=== PATIENT | male | born 1965 | race Caucasian/White ===

== ENCOUNTER → 2017-12-18 | Outpatient (CLI) | payer MEDICAID, OTHER | LOC: WOUNDCARE 13:01 | PROVIDERS: ATTEND Surgery | DX: L89.620 Pressure ulcer of left heel, unstageable (principal); E11.621 Type 2 diabetes mellitus with foot ulcer; E11.42 Type 2 diabetes mellitus with diabetic polyneuropathy; L97.514 Non-pressure chronic ulcer of other part of right foot with necrosis of bone; M86.471 Chronic osteomyelitis with draining sinus, right ankle and foot; N18.6 End stage renal disease; I69.351 Hemiplegia and hemiparesis following cerebral infarction affecting right dominant side; R54 Age-related physical debility | CPT/HCPCS: 11044; 87070; 87075; 87186; 87205; 97597 ==

== ENCOUNTER → 2017-12-23 | Outpatient (CLI) | payer MEDICAID | LOC: WOUNDCARE 14:31 | PROVIDERS: ATTEND Surgery | DX: E11.621 Type 2 diabetes mellitus with foot ulcer (principal); L97.514 Non-pressure chronic ulcer of other part of right foot with necrosis of bone; L89.620 Pressure ulcer of left heel, unstageable; I70.235 Atherosclerosis of native arteries of right leg with ulceration of other part of foot; M86.471 Chronic osteomyelitis with draining sinus, right ankle and foot; E11.42 Type 2 diabetes mellitus with diabetic polyneuropathy; N18.6 End stage renal disease; I69.351 Hemiplegia and hemiparesis following cerebral infarction affecting right dominant side; R54 Age-related physical debility | CPT/HCPCS: 99213 ==

== ENCOUNTER → 2017-12-23 | Outpatient (CLI) | payer MEDICAID | LOC: RAD 14:27 | PROVIDERS: ATTEND Surgery | DX: Z53.8 Procedure and treatment not carried out for other reasons (principal); L89.620 Pressure ulcer of left heel, unstageable; E11.621 Type 2 diabetes mellitus with foot ulcer; E11.42 Type 2 diabetes mellitus with diabetic polyneuropathy; L97.514 Non-pressure chronic ulcer of other part of right foot with necrosis of bone; M86.471 Chronic osteomyelitis with draining sinus, right ankle and foot; N18.6 End stage renal disease; I69.351 Hemiplegia and hemiparesis following cerebral infarction affecting right dominant side; R54 Age-related physical debility; I70.235 Atherosclerosis of native arteries of right leg with ulceration of other part of foot ==

== ENCOUNTER 2018-01-07 16:49 | Emergency (ER) | payer MEDICARE, MEDICAID ==
[~2018-01-07] VITALS: Ht 165.1 cm; Wt 71.8 kg
[2018-01-07 17:27] LABS: BASOPHILS % (AUTO) 0 % (0-10); EOSINOPHILS # (AUTO) 0.2 10^3/uL (0.0-0.3); EOSINOPHILS % (AUTO) 3 % (0-10); HEMATOCRIT 29 % (40-54); HEMOGLOBIN 9.7 G/DL (13.3-17.7); LYMPHOCYTES # (AUTO) 2.5 X 10^3 (1.0-4.0); LYMPHOCYTES % (AUTO) 30 % (12-44); MEAN CORPUSCULAR HEMOGLOBIN 30 PG (25-34); MEAN CORPUSCULAR HGB CONC 33 G/DL (32-36); MEAN CORPUSCULAR VOLUME 92 FL (80-99); MEAN PLATELET VOLUME 10.2 FL (7.4-10.4); MONOCYTES # (AUTO) 0.7 X 10^3 (0.0-1.0); MONOCYTES % (AUTO) 8 % (0-12); NEUTROPHILS # (AUTO) 4.9 X 10^3 (1.8-7.8); NEUTROPHILS % (AUTO) 59 % (42-75); PLATELET COUNT 300 10^3/uL (130-400); WHITE BLOOD COUNT 8.2 10^3/uL (4.3-11.0)
--- NOTE | 2018-01-07 17:42 | ED General ---
General Chief Complaint: General Problems/Pain Stated Complaint: LOW BP Source of Information: Patient Exam Limitations: No Limitations History of Present Illness Date Seen by Provider: Jan 07, 2018 Time Seen by Provider: 17:39 Initial Comments To ER from [facility] with reports of low blood pressure. He is an end-stage renal failure patient, does still produce urine. His last hemodialysis was on 12/26/17. He has not been going because he "doesn't feel like it". Staff has not noticed any fevers. He is generally weak. Timing/Duration: 1-2 Days Severity: Moderate Allergies and Home Medications Allergies Coded Allergies: No Known Drug Allergies (Unverified , 01/07/18) Patient Home Medication List Home Medication List Reviewed: Yes Review of Systems Constitutional: see HPI EENTM: see HPI Respiratory: no symptoms reported Cardiovascular: no symptoms reported Genitourinary: no symptoms reported Musculoskeletal: no symptoms reported Skin: no symptoms reported Psychiatric/Neurological: No Symptoms Reported Hematologic/Lymphatic: No Symptoms Reported Immunological/Allergic: no symptoms reported Past Icrutor-Hsricj-Spiuue Hx Patient Social History Recent Foreign Travel: No Contact w/Someone Who Travel: No Physical Exam Vital Signs Vital Signs - First Documented 01/07/18 17:00 Temp 97.4 Pulse 76 Resp 29 B/P (MAP) 87/54 (65) Pulse Ox 100 O2 Delivery Room Air Capillary Refill : General Appearance: No Apparent Distress, WD/WN, Chronically ill Eyes: Bilateral Eye Normal Inspection, Bilateral Eye PERRL, Bilateral Eye EOMI HEENT: PERRL/EOMI, TMs Normal Respiratory: No Accessory Muscle Use, No Respiratory Distress, Decreased Breath Sounds Cardiovascular: Regular Rate, Rhythm, Normal Peripheral Pulses Gastrointestinal: Normal Bowel Sounds, Non Tender, Soft Extremity: No Calf Tenderness, Other (delayed capillary refill of both lower extremities. 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 The distal aspect of the right second toe is now necrotic. He has a wound over the medial aspect of the right midfoot at the incision site from prior first toe amputation. On the left foot he has a decubitus ulcer left heel.) Neurologic/Psychiatric: Oriented x3, Other Skin: Normal Color, Warm/Dry, Other (has some erythema over the sacrum suggesting stage I or 2 decubitus ulcer. Wheelchair bound.) Comments 1807-he gets dialysis on Saturday. He skipped today so he could get it on . His labs surprisingly do not look as bad as I expected. I did discuss with him that if he skips anymore dialysis sessions he is signing his own certificate, he would be beyond the point of repair and would need to go on hospice. I then discussed with him that hospice is focused on keeping people comfortable as they are dying. He understands that he cannot miss anymore dialysis treatments, he does not want to consider hospice at this time. He understands the importance of dialysis and what will happen if he skips dialysis Focused Exam Lactate Level 01/07/18 17:09: Lactic Acid Level 2.03*H Lactic Acid Level Laboratory Tests Test 01/07/18 17:09 Lactic Acid Level 2.03 MMOL/L (0.50-2.00) *H Progress/Results/Core Measures Suspected Sepsis SIRS Temperature: Pulse: Respiratory Rate: Laboratory Tests 01/07/18 17:09: White Blood Count 8.2 Blood Pressure / Mean: 01/07/18 17:09: Lactic Acid Level 2.03*H Laboratory Tests 01/07/18 17:09: Creatinine 4.90H, Platelet Count 300, Total Bilirubin 0.6 Results/Orders Lab Results Laboratory Tests Test 01/07/18 17:04 01/07/18 17:09 01/07/18 17:15 Range/Units Urine Color YELLOW Urine Clarity CLEAR Urine pH 5 5-9 Urine Specific [place] 1.015 L 1.016-1.022 Urine Protein NEGATIVE NEGATIVE Urine Glucose (UA) NEGATIVE NEGATIVE Urine Ketones NEGATIVE NEGATIVE Urine Nitrite NEGATIVE NEGATIVE Urine Bilirubin NEGATIVE NEGATIVE Urine Urobilinogen NORMAL NORMAL MG/DL Urine Leukocyte Esterase NEGATIVE NEGATIVE Urine RBC (Auto) NEGATIVE NEGATIVE Urine RBC 0-2 /HPF Urine WBC NONE /HPF Urine Crystals NONE /LPF Urine Bacteria NEGATIVE /HPF Urine Casts NONE /LPF Urine Mucus NEGATIVE /LPF Urine Culture Indicated NO White Blood Count 8.2 4.3-11.0 10^3/uL Red Blood Count 3.20 L 4.35-5.85 10^6/uL Hemoglobin 9.7 L 13.3-17.7 G/DL Hematocrit 29 L 40-54 % Mean Corpuscular Volume 92 80-99 FL Mean Corpuscular Hemoglobin 30 25-34 PG Mean Corpuscular Hemoglobin Concent 33 32-36 G/DL Red Cell Distribution Width 18.0 H 10.0-14.5 % Platelet Count 300 130-400 10^3/uL Mean Platelet Volume 10.2 7.4-10.4 FL Neutrophils (%) (Auto) 59 42-75 % Lymphocytes (%) (Auto) 30 12-44 % Monocytes (%) (Auto) 8 0-12 % Eosinophils (%) (Auto) 3 0-10 % Basophils (%) (Auto) 0 0-10 % Neutrophils # (Auto) 4.9 1.8-7.8 X 10^3 Lymphocytes # (Auto) 2.5 1.0-4.0 X 10^3 Monocytes # (Auto) 0.7 0.0-1.0 X 10^3 Eosinophils # (Auto) 0.2 0.0-0.3 10^3/uL Basophils # (Auto) 0.0 0.0-0.1 10^3/uL Sodium Level 135 135-145 MMOL/L Potassium Level 4.2 3.6-5.0 MMOL/L Chloride Level 102 98-107 MMOL/L Carbon Dioxide Level 16 L 21-32 MMOL/L Anion Gap 17 H 5-14 MMOL/L Blood Urea Nitrogen 92 H 7-18 MG/DL Creatinine 4.90 H 0.60-1.30 MG/DL Estimat Glomerular Filtration Rate 12 BUN/Creatinine Ratio 19 Glucose Level 121 H 70-105 MG/DL Lactic Acid Level 2.03 *H 0.50-2.00 MMOL/L Calcium Level 8.4 L 8.5-10.1 MG/DL Total Bilirubin 0.6 0.1-1.0 MG/DL Aspartate Amino Transf (AST/SGOT) 392 H 5-34 U/L Alanine Aminotransferase (ALT/SGPT) 141 H 0-55 U/L Alkaline Phosphatase 417 H 40-136 U/L Total Protein 5.7 L 6.4-8.2 GM/DL Albumin 2.6 L 3.2-4.5 GM/DL B-Type Natriuretic Peptide 61.2 <100.0 PG/ML My Orders Orders - STERLING PHIPPS APRN Blood Culture (01/07/18 17:15) Lactic Acid Analyzer (01/07/18 17:15) Cbc With Automated Diff (01/07/18 17:15) Comprehensive Metabolic Panel (01/07/18 17:15) Ua Culture If Indicated (01/07/18 17:15) Iv Heplock-Insert (Order) (01/07/18 17:15) Chest 1 View, Ap/Pa Only (01/07/18 17:15) BNP (01/07/18 17:15) Ekg Tracing (01/07/18 17:15) Continuous Ekg Monitoring (01/07/18 17:15) Ns Iv 1000 Ml (Sodium Chloride 0.9%) (01/07/18 17:45) Ns Iv 1000 Ml (Sodium Chloride 0.9%) (01/07/18 20:15) Vital Signs/I&O 01/07/18 01/07/18 17:00 19:30 Temp 97.4 97.4 Pulse 76 79 Resp 29 14 B/P (MAP) 87/54 (65) 108/56 Pulse Ox 100 94 O2 Delivery Room Air Room Air Capillary Refill : Diagnostic Imaging Diagonstic Imaging: Xray Plain Films/CT/US/NM/MRI: chest Comments NAME: EVERTON MCGRAW [facility] REC#: [id number] PT STATUS: REG ER : 1965 PHYSICIAN: STERLING PHIPPS NARROW GAUGE OPERATOR ADMIT DATE: 01/07/18/ER Draft Date of Exam:01/07/18 CHEST 1 VIEW, AP/PA ONLY Portable erect AP chest at 5:45 p.m. INDICATION: Hypotension. There are no prior studies available for comparison. FINDINGS: This exam is less than optimal as the patient is rotated and the exam is taken in shallow inspiration. Allowing for these technical factors, the heart size is within normal limits. The lungs, where visualized, are clear. The mediastinum is not widened. The osseous structures are intact. There is a dialysis catheter in place on the right with the tip of the catheter overlying the distal superior vena cava. IMPRESSION: 1. There is no evidence for an acute cardiopulmonary abnormality on this suboptimal exam. 2. If clinical concern regarding an underlying abnormality persists, then a followup PA and lateral chest would be recommended for further study. Dictated on workstation # [id number] Dict: 01/07/18 1749 Trans: 01/07/18 1753 [facility] [id number] Interpreted by: ZAHEER ARAMBULA MD Electronically signed by: Departure Communication (Admissions) I have made arrangements for gravadrien on hosp[facility] to educate him about hosp[facility] so that he can proceed with hospice arrangements should he ever want to. 1921-his blood pressure after 1 L of fluids has been consistently over 105 systolic. We will [facility] 2035- at the time of discharge she has blood pressure was down to 77/56. An IV was restarted, he was given a second bag of IV fluids. After having had only about 100-200 cc of fluids from the second liter his blood pressure was back up to 120/64 and 117/86 on 2 readings 15 minutes apart. We'll [facility] with diagnosis of labile blood pressure Impression Primary Impression: ESRD (end stage renal disease) on dialysis Additional Impressions: Noncompliance Labile blood pressure Disposition: SNF Condition: Stable Departure-Patient Inst. Decision time for Depature: 20:37 Referrals: MARIA ELENA SOOD DO (PCP) Primary Care Physician Patient Instructions: NO INSTRUCTIONS GIVEN Add. Discharge Instructions: 1. He must not miss any more dialysis treatments and I have discussed this with him. He should be absolutely certain that he attends his next dialysis treatment on . Hospice will also come [facility] for a consult to see if this is something he would like to pursue. All discharge instructions reviewed with patient and/or family. Voiced understanding. Copy Copies To 1: MARIA ELENA SOOD PETER J APRN Jan 07, 2018 17:42
[2018-01-07] MEDS ORDERED: NS IV 1000 ML 1,000 ML IV SCH ×2 (17:45→20:15)
[2018-01-07 17:48] LABS: ALBUMIN 2.6 GM/DL (3.2-4.5); BILIRUBIN,TOTAL 0.6 MG/DL (0.1-1.0); CALCIUM 8.4 MG/DL (8.5-10.1); CREATININE SERUM 4.9 MG/DL (0.60-1.30); POTASSIUM 4.2 MMOL/L (3.6-5.0); TOTAL PROTEIN 5.7 GM/DL (6.4-8.2)
--- NOTE | 2018-01-07 17:54 | Diagnostic Imaging Report ---
Portable erect AP chest at 5:45 p.m. INDICATION: Hypotension. There are no prior studies available for comparison. FINDINGS: This exam is less than optimal as the patient is rotated and the exam is taken in shallow inspiration. Allowing for these technical factors, the heart size is within normal limits. The lungs, where visualized, are clear. The mediastinum is not widened. The osseous structures are intact. There is a dialysis catheter in place on the right with the tip of the catheter overlying the distal superior vena cava. IMPRESSION: 1. There is no evidence for an acute cardiopulmonary abnormality on this suboptimal exam. 2. If clinical concern regarding an underlying abnormality persists, then a followup PA and lateral chest would be recommended for further study. Dictated by: Dictated on workstation # [id number]
[2018-01-07 19:12] LABS: BILIRUBIN,URINE NEGATIVE (NEGATIVE); CLARITY,URINE CLEAR; COLOR,URINE YELLOW; GLUCOSE, URINE (UA) NEGATIVE (NEGATIVE); KETONES,URINE NEGATIVE (NEGATIVE); LEUKOCYTE ESTERASE ,URINE NEGATIVE (NEGATIVE); NITRITE,URINE NEGATIVE (NEGATIVE); PH,URINE 5 (5-9); PROTEIN,URINE NEGATIVE (NEGATIVE); UROBILINOGEN,URINE NORMAL (NORMAL)
[2018-01-07 19:19] LABS: BACTERIA,URINE NEGATIVE /HPF; RBC,URINE 0-2 /HPF
[2018-01-07 19:30] VITALS: BP 108/56
== END 2018-01-07 21:20 ==
LOC: EDUNIT# 16:49 → ER 16:50
DX: N18.6 End stage renal disease (principal); R03.1 Nonspecific low blood-pressure reading; Z99.2 Dependence on renal dialysis; Z91.19 Patient's noncompliance with other medical treatment and regimen
CPT/HCPCS: 36415; 71045; 80053; 81000; 83605; 83880; 85025; 87040; 93005; 96360; 96361

== ENCOUNTER 2018-01-25 07:52 | Emergency (ER) | payer MEDICARE, MEDICAID ==
[~2018-01-25] VITALS: Ht 165.1 cm; Wt 71.8 kg
[2018-01-25 08:11] LABS: BASOPHILS % (AUTO) 0 % (0-10); EOSINOPHILS # (AUTO) 0.1 10^3/uL (0.0-0.3); EOSINOPHILS % (AUTO) 1 % (0-10); HEMATOCRIT 22 % (40-54); HEMOGLOBIN 7.2 G/DL (13.3-17.7); LYMPHOCYTES # (AUTO) 2.9 X 10^3 (1.0-4.0); LYMPHOCYTES % (AUTO) 31 % (12-44); MEAN CORPUSCULAR HEMOGLOBIN 31 PG (25-34); MEAN CORPUSCULAR HGB CONC 32 G/DL (32-36); MEAN CORPUSCULAR VOLUME 96 FL (80-99); MEAN PLATELET VOLUME 8.6 FL (7.4-10.4); MONOCYTES # (AUTO) 1.1 X 10^3 (0.0-1.0); MONOCYTES % (AUTO) 11 % (0-12); NEUTROPHILS # (AUTO) 5.2 X 10^3 (1.8-7.8); NEUTROPHILS % (AUTO) 56 % (42-75); PLATELET COUNT 290 10^3/uL (130-400); RED BLOOD COUNT 2.31 10^6/uL (4.35-5.85); RED CELL DISTRIBUTION WIDTH 19.7 % (10.0-14.5); WHITE BLOOD COUNT 9.2 10^3/uL (4.3-11.0)
[2018-01-25] MEDS ORDERED: NS IV 1000 ML 1,000 ML IV SCH ×2 (08:15→09:00)
--- NOTE | 2018-01-25 08:19 | ED General ---
General Stated Complaint: LETHARGIC Source of Information: Patient Exam Limitations: No Limitations History of Present Illness Date Seen by Provider: Jan 25, 2018 Time Seen by Provider: 08:15 Initial Comments The patient is a 52-year-old white male who was brought by EMS from a local dialysis center. He resides in a local [facility]dc and receives hemodialysis. He was here in December with similar complaints 2 today. At that time he had skipped his dialysis for nearly 2 weeks as he just did not feel like it. This morning he was sent to dialysis. After he arrived it was felt he was to lethargic to have dialysis and he was sent here. On arrival he is arousable. He is poorly able to answer questioning before lapsing back into a sleeplike state. During his 01/07 visits he was consistently hypotensive here as well with blood pressures recorded as low as 77/56 Nurse Jyothi spoke to the patient's mother who is his DPO A. She states that given his multiple ailments and his significant lack of improvement post intervention the patient is a DO NOT RESUSCITATE. Timing/Duration: 1-3 Hours Allergies and Home Medications Allergies Coded Allergies: No Known Drug Allergies (Unverified , 01/07/18) Patient Home Medication List Home Medication List Reviewed: Yes Review of Systems Constitutional: see HPI Past Tkipkkc-Mlvvvn-Clbvws Hx Patient Social History Type Used: Cigarettes 2nd Hand Smoke Exposure: No Recent Foreign Travel: No Contact w/Someone Who Travel: No Physical Exam Vital Signs Vital Signs - First Documented 01/25/18 01/25/18 07:52 10:45 Temp 97.7 Pulse 63 Resp 16 B/P (MAP) 76/54 (61) Pulse Ox 100 O2 Delivery Non Rebreather O2 Flow Rate 2.00 Capillary Refill : Height, Weight, BMI Height: 5'5.00" Weight: 158lbs. 4.0oz. [id number]; BMI Method:Actual General Appearance: Other Eyes: Bilateral Eye Normal Inspection HEENT: Normal ENT Inspection Neck: Normal Inspection Respiratory: Chest Non Tender, Lungs Clear, Normal Breath Sounds, No Accessory Muscle Use, No Respiratory Distress Cardiovascular: Regular Rate, Rhythm, No Edema, No Gallop, No JVD, No Murmur, Normal Peripheral Pulses Gastrointestinal: Non Tender, Abnormal Bowel Sounds Comments Bilateral wound care boots Focused Exam Lactate Level 01/25/18 08:31: Lactic Acid Level 2.18*H 01/25/18 10:33: Lactic Acid Level 1.84 Lactic Acid Level Laboratory Tests Test 01/25/18 10:33 Lactic Acid Level 1.84 MMOL/L (0.50-2.00) Progress/Results/Core Measures Suspected Sepsis SIRS Temperature: Pulse: Respiratory Rate: Laboratory Tests 01/25/18 07:55: White Blood Count 9.2 Blood Pressure / Mean: 01/25/18 08:31: Lactic Acid Level 2.18*H 01/25/18 10:33: Lactic Acid Level 1.84 Laboratory Tests 01/25/18 07:55: Creatinine 3.49H, Platelet Count 290, Total Bilirubin 0.4 Results/Orders Lab Results Laboratory Tests Test 01/25/18 07:55 01/25/18 08:31 01/25/18 10:33 Range/Units White Blood Count 9.2 4.3-11.0 10^3/uL Red Blood Count 2.31 L 4.35-5.85 10^6/uL Hemoglobin 7.2 L 13.3-17.7 G/DL Hematocrit 22 L 40-54 % Mean Corpuscular Volume 96 80-99 FL Mean Corpuscular Hemoglobin 31 25-34 PG Mean Corpuscular Hemoglobin Concent 32 32-36 G/DL Red Cell Distribution Width 19.7 H 10.0-14.5 % Platelet Count 290 130-400 10^3/uL Mean Platelet Volume 8.6 7.4-10.4 FL Neutrophils (%) (Auto) 56 42-75 % Lymphocytes (%) (Auto) 31 12-44 % Monocytes (%) (Auto) 11 0-12 % Eosinophils (%) (Auto) 1 0-10 % Basophils (%) (Auto) 0 0-10 % Neutrophils # (Auto) 5.2 1.8-7.8 X 10^3 Lymphocytes # (Auto) 2.9 1.0-4.0 X 10^3 Monocytes # (Auto) 1.1 H 0.0-1.0 X 10^3 Eosinophils # (Auto) 0.1 0.0-0.3 10^3/uL Basophils # (Auto) 0.0 0.0-0.1 10^3/uL Sodium Level 133 L 135-145 MMOL/L Potassium Level 3.3 L 3.6-5.0 MMOL/L Chloride Level 101 98-107 MMOL/L Carbon Dioxide Level 22 21-32 MMOL/L Anion Gap 10 5-14 MMOL/L Blood Urea Nitrogen 25 H 7-18 MG/DL Creatinine 3.49 H 0.60-1.30 MG/DL Estimat Glomerular Filtration Rate 18 BUN/Creatinine Ratio 7 Glucose Level 320 H 70-105 MG/DL Calcium Level 7.7 L 8.5-10.1 MG/DL Total Bilirubin 0.4 0.1-1.0 MG/DL Aspartate Amino Transf (AST/SGOT) 18 5-34 U/L Alanine Aminotransferase (ALT/SGPT) < 6 0-55 U/L Alkaline Phosphatase 165 H 40-136 U/L Total Protein 4.5 L 6.4-8.2 GM/DL Albumin 2.0 L 3.2-4.5 GM/DL Lactic Acid Level 2.18 *H 1.84 0.50-2.00 MMOL/L My Orders Orders - ALBERTO STANFORD MD Cbc With Automated Diff (01/25/18 07:58) Comprehensive Metabolic Panel (01/25/18 07:58) Lactic Acid Analyzer (01/25/18 07:58) Blood Culture (01/25/18 07:58) Ns Iv 1000 Ml (Sodium Chloride 0.9%) (01/25/18 08:15) Ns Iv 1000 Ml (Sodium Chloride 0.9%) (01/25/18 09:00) Red Cells Leukocytes Reduced (01/25/18 08:49) Type And Screen (01/25/18 08:49) Vital Signs/I&O 01/25/18 01/25/18 01/25/18 01/25/18 07:52 10:45 10:59 11:00 Temp 97.7 Pulse 63 58 56 56 Resp 16 18 18 18 B/P (MAP) 76/54 (61) 77/55 91/55 (67) 86/55 Pulse Ox 100 98 98 98 O2 Delivery Non Rebreather Nasal Cannula Nasal Cannula Nasal Cannula O2 Flow Rate 2.00 01/25/18 11:55 Pulse 55 Resp 18 B/P (MAP) 88/44 (59) Pulse Ox 100 O2 Delivery Nasal Cannula Capillary Refill : Departure Communication (Admissions) 1129. The patient is receiving 1 unit of packed red blood cells at this time. His blood pressures is now 90/60 and he is alert and conversant. When he was asked whether he would wish to go on to [place] today versus back to the [facility] with Dialysis on Saturday he voiced his wishes to return to the fdc. 1248 the patient has completed his transfusion. He was asked again what it was still his wish to return to the fdc and he stated yes. Impression Primary Impression: renal failure Additional Impression: anemia/hypotension Disposition: 01 HOME, SELF-CARE Condition: Improved Transfer Method of Transfer: [facility]dc van Departure-Patient Inst. Decision time for Depature: 12:46 Referrals: MARIA ELENA SOOD DO (PCP) Primary Care Physician Add. Discharge Instructions: Resume usual activities. Return to dialysis the first of the week. ALBERTO STANFORD MD Jan 25, 2018 08:19
[2018-01-25 08:28] LABS: ALANINE AMINOTRANSFERASE < 6 U/L (0-55); ALKALINE PHOSPHATASE 165 U/L (40-136); BILIRUBIN,TOTAL 0.4 MG/DL (0.1-1.0); BUN/CREATININE RATIO 7; CALCIUM 7.7 MG/DL (8.5-10.1); CARBON DIOXIDE 22 MMOL/L (21-32); CHLORIDE 101 MMOL/L (98-107); CREATININE SERUM 3.49 MG/DL (0.60-1.30); GFR ESTIMATED 18; GLUCOSE 320 MG/DL (70-105); POTASSIUM 3.3 MMOL/L (3.6-5.0); SODIUM 133 MMOL/L (135-145); TOTAL PROTEIN 4.5 GM/DL (6.4-8.2)
[2018-01-25 10:45] VITALS: BP 77/55
[2018-01-25 10:59] VITALS: BP 91/55
[2018-01-25 11:00] VITALS: BP 86/55
[2018-01-25 11:55] VITALS: BP 88/44
[2018-01-25 12:44] VITALS: BP 81/54
[2018-01-25 13:00] VITALS: BP 96/74
== END 2018-01-25 13:00 | disposition home or self-care (01) ==
LOC: EDUNIT# 07:52 → ER 07:56
DX: N19 Unspecified kidney failure (principal); D64.9 Anemia, unspecified; I95.9 Hypotension, unspecified; Z99.2 Dependence on renal dialysis
CPT/HCPCS: 36415; 80053; 83605; 85025; 86850; 86900; 86901; 86920; 87040; 96360; 96361; 99284

== ENCOUNTER → 2018-02-04 | Outpatient (CLI) | payer MEDICARE, MEDICAID ==
--- NOTE | 2018-02-04 16:03 | Diagnostic Imaging Report ---
INDICATION: INDICATION: Right arm swelling. PROCEDURE: US UE venous duplex right. TECHNIQUE: Multiple Real-time grayscale images were obtained over the right upper extremity in various projections. Additional duplex Doppler and color Doppler images were also obtained. FINDINGS: The right jugular vein is thrombosed. The subclavian, axillary, and brachial veins are patent. The basilic, radial, and ulnar veins are patent. There is a cystic mass in the region of the lower bicep measuring 4.1 x 2.3 x 4.2 cm. This is near the patient's incision where reportedly a fistula was placed. No blood flow within the cystic mass is seen. This may represent a seroma or resolving hematoma. IMPRESSION: 1. Right jugular vein thrombosis. 2. Cystic mass in the region of the right bicep without internal blood flow. This is most consistent with a resolving hematoma/seroma. Dictated by: Dictated on workstation # [id number]
== END ==
LOC: RAD 14:06
PROVIDERS: ATTEND Family Medicine
DX: I82.C11 Acute embolism and thrombosis of right internal jugular vein (principal)

== ENCOUNTER → 2018-02-24 | Outpatient (CLI) | payer MEDICARE, MEDICAID ==
--- NOTE | 2018-02-24 17:05 | Diagnostic Imaging Report ---
INDICATION: Right upper extremity edema. TECHNIQUE: Multiple real-time grayscale images were obtained of the right upper extremity in various projections. Duplex Doppler and color Doppler images were also obtained. FINDINGS: The examination was technically limited. There is a large hematoma in the right upper arm measuring 9 x 4.9 x 3.5 cm. This obscures the proximal and mid brachial and basilic veins. Additionally, the ulnar vein was not seen due to edema. There is no definitive evidence of deep venous thrombosis. There is a PICC line in the right upper extremity. IMPRESSION: Technically limited exam with no definitive evidence of deep venous thrombosis. There is a large hematoma in the right upper arm as described. Dictated by: Dictated on workstation # [id number]
== END ==
LOC: RAD 16:09
PROVIDERS: ATTEND Family Medicine
DX: M79.81 Nontraumatic hematoma of soft tissue (principal)

== ENCOUNTER 2018-03-12 22:08 | Emergency (ER) | payer MEDICARE, MEDICAID ==
[~2018-03-12] VITALS: Ht 175.3 cm; Wt 72.6 kg
[2018-03-12] MEDS ORDERED: LIDOCAINE UROJET 2% GEL 10 ML PKG TOP ONE (22:15)
[2018-03-12 22:32] LABS: BILIRUBIN,URINE NEGATIVE (NEGATIVE); CLARITY,URINE MUCOUS; COLOR,URINE OTHER; GLUCOSE, URINE (UA) NEGATIVE (NEGATIVE); KETONES,URINE 1+ (NEGATIVE); LEUKOCYTE ESTERASE ,URINE 3+ (NEGATIVE); NITRITE,URINE NEGATIVE (NEGATIVE); PH,URINE 6 (5-9); PROTEIN,URINE 3+ (NEGATIVE); UROBILINOGEN,URINE NORMAL (NORMAL)
[2018-03-12 22:34] LABS: BACTERIA,URINE FEW /HPF; WBC,URINE TNTC /HPF
[2018-03-12 22:58] LABS: BASOPHILS % (AUTO) 0 % (0-10); EOSINOPHILS # (AUTO) 0.4 10^3/uL (0.0-0.3); EOSINOPHILS % (AUTO) 4 % (0-10); HEMATOCRIT 33 % (40-54); HEMOGLOBIN 9.9 G/DL (13.3-17.7); LYMPHOCYTES % (AUTO) 11 % (12-44); MEAN CORPUSCULAR HEMOGLOBIN 30 PG (25-34); MEAN CORPUSCULAR HGB CONC 30 G/DL (32-36); MEAN CORPUSCULAR VOLUME 101 FL (80-99); MEAN PLATELET VOLUME 8.9 FL (7.4-10.4); MONOCYTES # (AUTO) 0.5 X 10^3 (0.0-1.0); MONOCYTES % (AUTO) 5 % (0-12); NEUTROPHILS # (AUTO) 7.3 X 10^3 (1.8-7.8); NEUTROPHILS % (AUTO) 79 % (42-75); PLATELET COUNT 219 10^3/uL (130-400); RED BLOOD COUNT 3.29 10^6/uL (4.35-5.85); RED CELL DISTRIBUTION WIDTH 18.6 % (10.0-14.5); WHITE BLOOD COUNT 9.2 10^3/uL (4.3-11.0)
[2018-03-12 23:16] LABS: ALBUMIN 2.8 GM/DL (3.2-4.5); BILIRUBIN,TOTAL 0.4 MG/DL (0.1-1.0); CALCIUM 8.7 MG/DL (8.5-10.1); CREATININE SERUM 2.97 MG/DL (0.60-1.30); POTASSIUM 4.1 MMOL/L (3.6-5.0); TOTAL PROTEIN 5.9 GM/DL (6.4-8.2)
[2018-03-12] MEDS ORDERED: cefTRIAXone FOR IV USE 1,000 MG in NS (IVPB) 50 ML IV ONE (23:45)
[2018-03-13] MEDS ORDERED: ONDANSETRON 4 MG/2 ML (SDV) Z0FRAN IVP ONE (00:15)
[2018-03-13] MEDS ORDERED: KETOROLAC 30 MG/ML VIAL IVP ONE (00:15)
--- NOTE | 2018-03-13 00:22 | ED GU-Male ---
General Chief Complaint: -Male Stated Complaint: TROUBLE URINATING Nursing Triage Note: Pt brought to ED via EMS. Pt in obvious pain stating he has been unable to urinate. EMS states NH attempted to straight cath the pt. Pt missed dialysis yesterday. Source: patient, EMS, custodial records Exam Limitations: no limitations History of Present Illness Date Seen by Provider: Mar 12, 2018 Time Seen by Provider: 22:09 Initial Comments This 52-year-old gentleman presents to the emergency room via EMS with complaints of inability to urinate. He normally is able to urinate on his own without difficulty. He has intense suprapubic pain as a result of retention. Attempts to pass a straight catheter at the custodial have failed. Patient denies prior need for catheterization. Patient has end-stage renal failure and receives dialysis. He still makes urine and generally urinates multiple times per day. It is noted that patient missed his dialysis yesterday because there was no transportation for him. Allergies and Home Medications Allergies Coded Allergies: No Known Drug Allergies (Unverified , 01/07/18) Home Medications Cephalexin 500 Mg Capsule, 500 MG PO BID Prescribed by: JACKIE ARDON on 03/13/18 0027 Tamsulosin HCl 0.4 Mg Cap, 0.4 MG PO DAILY Prescribed by: JACKIE ARDON on 03/13/18 0027 Patient Home Medication List Home Medication List Reviewed: Yes Review of Systems Review of Systems Constitutional: no symptoms reported EENTM: no symptoms reported Respiratory: no symptoms reported Cardiovascular: no symptoms reported Gastrointestinal: no symptoms reported Genitourinary: see HPI Musculoskeletal: no symptoms reported Skin: no symptoms reported Psychiatric/Neurological: See HPI (chronic lower extremity weakness) Endocrine: No Symptoms Reported Past Kpsmfzx-Jyekze-Liquqi Hx Past Med/Social Hx: Reviewed and Corrections made Patient Social History Alcohol Use: Denies Use Recreational Drug Use: No Smoking Status: Former Smoker Type Used: Cigarettes 2nd Hand Smoke Exposure: No Recent Foreign Travel: No Contact w/Someone Who Travel: No Recent Infectious Disease Expo: No Past Medical History Surgeries: Yes (L FEMORAL ABOVE THE KNEE POPLITEA BY PASS WITH GRAFT. ) Vascular Surgery Respiratory: No Cardiac: Yes Deep Vein Thrombosis Neurological: No Genitourinary: Yes Renal Failure, Dialysis Gastrointestinal: No Musculoskeletal: No Endocrine: Yes Diabetes, Non-Insulin dep HEENT: No Cancer: No Psychosocial: Yes Depression Physical Exam Vital Signs Vital Signs - First Documented 03/12/18 22:08 Temp 96.5 Pulse 115 Resp 20 B/P (MAP) 151/88 (109) Pulse Ox 96 O2 Delivery Room Air Capillary Refill : Less Than 3 Seconds Height, Weight, BMI Height: 5'9.00" Weight: 160lbs. 4.0oz. [id number]; BMI Method:Stated General Appearance: WD/WN, moderate distress HEENT: normal ENT inspection Neck: normal inspection Cardiovascular: regular rate, rhythm, no edema, no murmur Respiratory: lungs clear, normal breath sounds, no respiratory distress, no accessory muscle use Gastrointestinal: normal bowel sounds, soft, other (suprapubic tenderness with distended palpable bladder) Extremities: normal inspection Neurologic/Psychiatric: evidence specialist II-XII nml as tested, no motor/sensory deficits, alert, normal mood/affect, oriented x 3 Skin: normal color, warm/dry Focused Exam Lactate Level 03/12/18 22:45: Lactic Acid Level 1.73 Lactic Acid Level Laboratory Tests Test 03/12/18 22:45 Lactic Acid Level 1.73 MMOL/L (0.50-2.00) Progress/Results/Core Measures Suspected Sepsis Recent Fever Within 48 Hours: No Infection Criteria Present: None New/Unexplained Altered Menta: No Sepsis Screen: No Definite Risk SIRS Temperature:96.5 Pulse: 115 Respiratory Rate: 20 Laboratory Tests 03/12/18 22:45: White Blood Count 9.2 Blood Pressure 151 /88 Mean: 109 03/12/18 22:45: Lactic Acid Level 1.73 Laboratory Tests 03/12/18 22:45: Creatinine 2.97H, Platelet Count 219, Total Bilirubin 0.4 Results/Orders Lab Results Laboratory Tests Test 03/12/18 22:18 03/12/18 22:45 Range/Units Urine Color OTHER H Urine Clarity MUCOUS Urine pH 6 5-9 Urine Specific [place] 1.025 H 1.016-1.022 Urine Protein 3+ H NEGATIVE Urine Glucose (UA) NEGATIVE NEGATIVE Urine Ketones 1+ H NEGATIVE Urine Nitrite NEGATIVE NEGATIVE Urine Bilirubin NEGATIVE NEGATIVE Urine Urobilinogen NORMAL NORMAL MG/DL Urine Leukocyte Esterase 3+ H NEGATIVE Urine RBC (Auto) 4+ H NEGATIVE Urine RBC NONE /HPF Urine WBC TNTC H /HPF Urine Crystals NONE /LPF Urine Bacteria FEW H /HPF Urine Casts NONE /LPF Urine Mucus NEGATIVE /LPF Urine Culture Indicated YES White Blood Count 9.2 4.3-11.0 10^3/uL Red Blood Count 3.29 L 4.35-5.85 10^6/uL Hemoglobin 9.9 L 13.3-17.7 G/DL Hematocrit 33 L 40-54 % Mean Corpuscular Volume 101 H 80-99 FL Mean Corpuscular Hemoglobin 30 25-34 PG Mean Corpuscular Hemoglobin Concent 30 L 32-36 G/DL Red Cell Distribution Width 18.6 H 10.0-14.5 % Platelet Count 219 130-400 10^3/uL Mean Platelet Volume 8.9 7.4-10.4 FL Neutrophils (%) (Auto) 79 H 42-75 % Lymphocytes (%) (Auto) 11 L 12-44 % Monocytes (%) (Auto) 5 0-12 % Eosinophils (%) (Auto) 4 0-10 % Basophils (%) (Auto) 0 0-10 % Neutrophils # (Auto) 7.3 1.8-7.8 X 10^3 Lymphocytes # (Auto) 1.0 1.0-4.0 X 10^3 Monocytes # (Auto) 0.5 0.0-1.0 X 10^3 Eosinophils # (Auto) 0.4 H 0.0-0.3 10^3/uL Basophils # (Auto) 0.0 0.0-0.1 10^3/uL Sodium Level 138 135-145 MMOL/L Potassium Level 4.1 3.6-5.0 MMOL/L Chloride Level 105 98-107 MMOL/L Carbon Dioxide Level 23 21-32 MMOL/L Anion Gap 10 5-14 MMOL/L Blood Urea Nitrogen 20 H 7-18 MG/DL Creatinine 2.97 H 0.60-1.30 MG/DL Estimat Glomerular Filtration Rate 22 BUN/Creatinine Ratio 7 Glucose Level 239 H 70-105 MG/DL Lactic Acid Level 1.73 0.50-2.00 MMOL/L Calcium Level 8.7 8.5-10.1 MG/DL Corrected Calcium 9.7 8.5-10.1 MG/DL Total Bilirubin 0.4 0.1-1.0 MG/DL Aspartate Amino Transf (AST/SGOT) 17 5-34 U/L Alanine Aminotransferase (ALT/SGPT) 6 0-55 U/L Alkaline Phosphatase 108 40-136 U/L Total Protein 5.9 L 6.4-8.2 GM/DL Albumin 2.8 L 3.2-4.5 GM/DL My Orders Orders - JACKIE ARAUJO MD Lidocaine 2% (Urojet) (Xylocaine Urojet) (03/12/18 22:15) Cuevas Cath (03/12/18 22:24) Ua Culture If Indicated (03/12/18 22:25) Urine Culture (03/12/18 22:18) Cbc With Automated Diff (03/12/18 22:38) Comprehensive Metabolic Panel (03/12/18 22:38) Blood Culture (03/12/18 22:38) Saline Lock/Iv-Start (03/12/18 22:38) Vital Signs Adult Sepsis Patie Q15M (03/12/18 22:38) Remove Rings In Anticipation O (03/12/18 22:38) Lactic Acid Analyzer (03/12/18 22:38) Ceftriaxone For Iv Use (Rocephin For I (03/12/18 23:45) Ketorolac Injection (Toradol Injection) (03/13/18 00:15) Ondansetron Injection (Zofran Injectio (03/13/18 00:15) Medications Given in ED Current Medications Medications Dose Ordered Sig/Arturo Route Start Time Stop Time Status Last Admin Dose Admin Ceftriaxone Sodium 1000 mg/ Sodium Chloride 50 ml @ 100 mls/hr ONCE ONCE IV 03/12/18 23:45 03/13/18 00:14 DC 03/12/18 23:54 100 MLS/HR Lidocaine HCl 10 ml ONCE ONCE TOP 03/12/18 22:15 03/12/18 22:16 DC 03/12/18 22:18 10 ML Vital Signs/I&O 03/12/18 03/13/18 22:08 00:37 Temp 96.5 96.9 Pulse 115 96 Resp 20 14 B/P (MAP) 151/88 (109) 145/95 Pulse Ox 96 97 O2 Delivery Room Air Room Air Capillary Refill : Less Than 3 Seconds Blood Pressure Mean: 109 Progress Note : Progress Note Cuevas catheter was placed with immediate production of a large amount of urine and immediate relief of pain. Urine became progressively thick and cloudy. Rocephin was administered for treatment of UTI. Cuevas was left in place. Prescriptions were provided and patient was transferred back to the custodial via EMS. Labs were obtained and reviewed as patient missed his last dialysis. Departure Impression Primary Impression: Urinary tract infection Qualified Codes: N39.0 - Urinary tract infection, site not specified Additional Impression: Urinary obstruction Disposition: 01 HOME, SELF-CARE Condition: Improved Departure-Patient Inst. Decision time for Depature: 00:15 Referrals: MARIA ELENA SOOD DO (PCP/Family) Primary Care Physician Patient Instructions: How to Care for Your Cuevas Catheter, Male, Urinary Tract Infections in Adults Add. Discharge Instructions: Resume dialysis as scheduled. Complete antibiotic as prescribed. Follow-up with Dr. Sood on Saturday to review urine culture. Empty Cuevas catheter frequently. Return to care if symptoms worsen or new symptoms such as fever develop. All discharge instructions reviewed with patient and/or family. Voiced understanding. Scripts Cephalexin (Keflex) 500 Mg Capsule 500 MG PO BID, #14 CAP Prov: JACKIE ARAUJO MD 03/13/18 Tamsulosin HCl (Flomax) 0.4 Mg Cap 0.4 MG PO DAILY, #30 CAP Prov: JACKIE ARAUJO MD 03/13/18 Copy Copies To 1: MARIA ELENA SOOD JOSHUA T MD Mar 13, 2018 00:22
[2018-03-13] MEDS ORDERED: TAMS0.4C98 PO (00:27)
[2018-03-13] MEDS ORDERED: CEPH-507 PO (00:27)
[2018-03-13 00:37] VITALS: BP 145/95
== END 2018-03-13 00:37 | disposition home or self-care (01) ==
LOC: EDUNIT# 22:08 → ER 22:09
DX: N39.0 Urinary tract infection, site not specified (principal); N32.0 Bladder-neck obstruction; E11.22 Type 2 diabetes mellitus with diabetic chronic kidney disease; N18.6 End stage renal disease; F32.9 Major depressive disorder, single episode, unspecified; Z99.2 Dependence on renal dialysis; Z87.891 Personal history of nicotine dependence; Z86.718 Personal history of other venous thrombosis and embolism
CPT/HCPCS: 36415; 51702; 80053; 81000; 83605; 85025; 87040; 87088; 87106; 96365

== ENCOUNTER → 2018-03-12 | Outpatient (CLI) | payer MEDICARE, MEDICAID ==
[~2018-03-12] MED LIST: CEPH-507 PO; TAMS0.4C98 PO
[2018-03-12 21:48] LABS: BILIRUBIN,URINE NEGATIVE (NEGATIVE); CLARITY,URINE VERY CLOUDY; COLOR,URINE YELLOW; GLUCOSE, URINE (UA) NEGATIVE (NEGATIVE); KETONES,URINE NEGATIVE (NEGATIVE); LEUKOCYTE ESTERASE ,URINE 3+ (NEGATIVE); NITRITE,URINE NEGATIVE (NEGATIVE); PH,URINE 6.5 (5-9); PROTEIN,URINE 2+ (NEGATIVE); UROBILINOGEN,URINE NORMAL (NORMAL)
[2018-03-12 22:00] LABS: BACTERIA,URINE FEW /HPF; WBC,URINE >100 /HPF
== END ==
LOC: LABNPT 21:42
PROVIDERS: ATTEND Family Medicine
DX: R33.9 Retention of urine, unspecified (principal); R39.15 Urgency of urination; N18.6 End stage renal disease; Z99.2 Dependence on renal dialysis
CPT/HCPCS: 81000; 87088